=== PATIENT | male | born 1955 | race Caucasian/White ===

== ENCOUNTER 2017-04-20 12:00 | Inpatient (IN) | payer OTHER ==
[~2017-04-20] VITALS: Ht 175.3 cm; Wt 57.6 kg
--- NOTE | ~2017-04-20 | HP ---
Unit #: [id number] #: [id number] Patient: JHOAN BELL [id number] [place] [address] [id number] MR#: [id number] NAME: JHOAN BELL. ROOM: [facility] Age: 61 Sex: M Admission Date: 04/20/2017 : 1955 Attending Physician: Jhoan Fiore M.D. Admitting Physician: Jhoan Fiore M.D. Primary Care Physician: Johanne Hoyos Aprn HISTORY AND PHYSICAL HISTORY OF PRESENT ILLNESS Jhoan is a 61 year old admitted to [facility] because of his abuse of alcohol. PAST MEDICAL HISTORY 1. Long history of alcohol abuse. 2. High blood pressure. 3. Coronary artery disease. a. CABG. 4. COPD. 5. Vitiligo. PAST SURGICAL HISTORY As above. ALLERGIES Penicillin, sulfa. SOCIAL HISTORY He smokes less than 1/2 pack per day. Drinks a case of beer on a daily basis. Denies illicit drug use. FAMILY HISTORY Medically noncontributory. REVIEW OF SYSTEMS CONSTITUTIONAL: No fever or chills. HEENT: He does report that he fell prior to admission sustaining a laceration across the bridge of his nose. The area is sutured. CARDIOVASCULAR: Denies chest pain, irregular heart rhythm or palpitations. CHEST: Denies shortness of breath or cough. No hemoptysis. GASTROINTESTINAL: Denies nausea, vomiting, diarrhea or chronic constipation. ENDOCRINE: Denies history of increased thirst or urination. No recent significant weight loss or gain. GENITOURINARY: Denies dysuria, frequency, or hematuria. SKIN: Denies any rashes. HEMATOLOGIC: Denies history of increased bleeding or bruising. MUSCULOSKELETAL: Denies any hot, swollen joints. No generalized muscle pain. NEUROLOGIC: Denies problems with vision or speech. No frequent, severe headaches. No numbness, tingling or weakness in any extremities. Denies loss of bladder or bowel control. Unit #: [id number] #: [id number] Patient: JHOAN BELL CURRENT MEDICATIONS Detox protocol. PHYSICAL EXAMINATION GENERAL: Alert, thin gentleman appearing much, much older than his stated age of 61 in no apparent distress. VITAL SIGNS: Blood pressure 210/100, heart rate 98, respirations 16, temperature 98.6. WEIGHT: 127. HEIGHT: 5 feet 9 inches. SKIN: Warm and dry without rash or lesion. HEENT: Normocephalic. TMs not viewed. Oral and nasal passages clear. Conjunctivae clear. PERRLA. EOMs intact. Stitches across the bridge of the nose. There is good skin approximation without redness, swelling, heat or pus. NECK: Supple without lymphadenopathy or thyromegaly. HEART: Regular rate and rhythm without murmur. LUNGS: Clear. ABDOMEN: Soft, nontender. : Not done. EXTREMITIES: No evidence of cyanosis, clubbing or edema. Moves all without focal deficit. NEUROLOGICAL: Grossly within normal limits. Cranial Nerves: II: Visual tolentino are intact. III, IV AND : Extraocular movements are intact. Pupils are equal, round and reactive to light. V: Facial sensation is grossly normal. VII: Facial movements and expression are normal. VIII: Auditory acuity grossly intact. IX, X: Uvula is midline. Phonation is normal. XI: Patient shrugs shoulders and turns head normally. XII: Tongue protrudes in the midline. Sensory and Motor Function: Sensory and motor sensation is grossly normal. Motor: moves all extremities well. Coordination: Gait is normal. Deep Tendon Reflexes: Intact. IMPRESSION 1. Psychiatric admission. 2. High blood pressure, not controlled on admission. He is admitted on Zestril 20 mg daily. RECOMMENDATIONS PSYCHIATRIC: Per psychiatrist. MEDICAL: 1. See no contraindication to participate in facility's activities. 2. Detox per protocol. 3. Continue Zestril daily. If pressures remain high will need to address. MEDICAL PROGNOSIS Good. MEDICAL CONDITION Stable. Unit #: [id number] #: [id number] Patient: JHOAN BELL Dictated by... Bushra Lea P.A.-C. for Angela Epps/brennan TD: 04/21/2017 17:33 JOB #: [id number] HISTORY AND PHYSICAL Page 1 of 1 X Bushra Lea HISTORY AND PHYSICAL
--- NOTE | ~2017-04-20 | A ---
[facility] Nutrition Therapy DATE: 04/22/17 Patient: KARINA BELL Physician: GRAZYNA Address: [address] [place] [address] Room/Bed: [address], Zip: [place] [address] Admit Date: 04/20/17 Date of : 53 Height: 5 9 Weight: [phone] NUTRITIONAL ASSESSMENT: REASON: LOW BMI (18.8) PATIENT ADMITTED FOR ETOH DETOX PMH: HTN, CAD, COPD Anthropometrics: HT: 69", WT: 127#, BMI: 18.8, %IBW: 79 Labs: 04/21/17: NA: 146, GLU: 111 Meds: MVI, DETOX PROTOCOL, VIT B COMPLEX Assessment: PATIENT IS A 61 Y/O MALE ADMITTED FOR ETOH DETOX. PATIENT IS CURRENTLY ON DISABILITY, LIVES IN A TRAILER, SMOKES 1 PPD, AND HAS DAILY ETOH USE FOR THE LAST 4 MONTHS. HE DENIES ANY OTHER SUBSTANCE ABUSE. UPON ADMIT PATIENT STATED A POOR APPETITE WHEN DRINKING, HE'S HAD AN UNKNOWN AMOUNT OF WEIGHT LOSS, AND HE SLEEPS AN AVERAGE OF 2HRS/NIGHT. NURSING REPORTS FAIR PO INTAKES AND THE PATIENT DID NOT SCORE ANY NUTRITIONAL RISK POINTS. PATIENT FELL SEVERAL DAYS AGO AND HE SUSTAINED A LACERATION TO HIS NOSE WHICH HAS BEEN SUTURED. HE IS NOTED TO BE CONFUSED/FORGETFUL AND HE HAS BEEN NON-COMPLIANT WITH HIS MEDICATIONS PRIOR TO ADMIT. THIS RD SUSPECTS PATIENT'S WEIGHT AND APPETITE WILL STABILIZE AND POSSIBLY INCREASE FOLLOWING DETOX. Dx: INADEQUATE NUTRIENT INTAKE R/T CURRENT CONDITION, ETOH ABUSE AEB LOW BMI, DECREASED APPETITE Intervention: REGULAR DIET, LARGE PORTION ENTREES, MEDS PER MD, DETOX, PSYCH Monitoring, Evaluation and Goals: 1. ADEQUATE PO INTAKES >50% OF MEALS 2. PREVENT, CORRECT MICRO/MACRO NUTRIENT DEFICIENCIES 3. WEIGHT; PROMOTE A STEADY WEIGHT GAIN TOWARDS A HEALTHY BMI OF 19-25, PREVENT WEIGHT LOSS MONITOR: WEIGHTS, LABS, PO/FLUID INTAKES Recommendations: 1. CONTINUE REGULAR DIET TOLERATED. WILL INCREASE ENTREES TO LARGER PORTIONS D/T NEED FOR INCREASED CALORIC INTAKE 2. ENCOURAGE ADEQUATE PO AND FLUID INTAKES [facility] Nutrition Therapy DATE: 04/22/17 Patient: KARINA BELL Physician: GRAZYNA Address: [address] [place] [address] Room/Bed: [address], Zip: [place] [address] Admit Date: 04/20/17 Date of : [birth year] Height: 5 9 Weight: [phone] 3. OBTAIN WEIGHTS ROUTINELY (EVERY 3-4 DAYS) 4. IF PO INTAKES ARE BELOW 50% OF MEALS PLEASE ORDER ENSURE BID TO PROMOTE ADEQUATE KCAL AND PROTEIN INTAKES RD TO F/U PER PROTOCOL AND PRN R/T PATIENT MILDLY COMPROMISED Respectfully, OBINNA MOHAN RD, LD Food and Nutritional Services [facility] cc: client file
--- NOTE | ~2017-04-20 | PA ---
Unit #: [id number] #: [id number] Patient: KARINA HERNANDEZ [id number] [place] [address] [id number] I MR#: [id number] NAME: KARINA HERNANDEZ. ROOM: [facility] Age: 61 Sex: M Admission Date: 04/20/2017 : 1955 Date of Assessment: Attending Physician: Karina Fiore M.D. Admitting Physician: Karina Fiore M.D. Primary Care Physician: Johanne Hoyos Aprn PSYCHIATRIC ASSESSMENT INFORMANT(S) Patient. RELIABILITY Reliable. CHIEF COMPLAINT Detox. HISTORY OF PRESENT ILLNESS Mr. Hernandez is a 61-year-old man who reports that he has been drinking excessively on a daily basis and causing a lot of problems in his life. He also has a gash on the bridge of his nose from an intoxicated fall. He denied suicidal ideation intent or plan and was admitted due to the need for inpatient detox. PAST PSYCHIATRIC HISTORY The patient has been treated at [facility] in the past and was in a substance abuse program in [facility]. He currently does not take any psychiatric medications. FAMILY HISTORY The patient denied a family history of substance abuse. He did have one sister who attempted suicide over depression. SOCIAL HISTORY The patient denied any history of childhood abuse. The patient's in 2007 while he was incarcerated. He reports he has a "on and off" relationship with a woman right now. He has no pending legal charges or probationary status. He completed school only through the fifth grade and received social security disability due to multiple medical problems. He is currently living on his sister's property in a trailer with no electricity. MEDICAL HISTORY 1. Hypertension. 2. Heart disease. MEDICATION HISTORY Lisinopril. ALLERGIES Penicillin and sulfa drugs. Unit #: [id number] #: [id number] Patient: KARINA HERNANDEZ SUBSTANCE ABUSE HISTORY As noted above. MENTAL STATUS EXAM Mr. Hernandez presented as a disheveled man who appeared older than his stated age. He is cooperative with the examination. His speech was soft, but easily understood. Calm. Mood, mildly depressed with a congruent affect. He was alert and fully oriented. His memory and concentration were intact. His thought process was logical with no antipsychosis. He denied suicidal ideation intent or plan. Insight and judgment were fair. Fund of knowledge and (1) were intact. ASSETS AND LIABILITIES The patient has local resources including voluntary elective treatment. Liabilities include difficulty in maintaining sobriety. ADMITTING DIAGNOSES AXIS I Alcohol dependence, withdrawal and uncomplicated. F10.23 AXIS II No diagnosis. AXIS III Hypertension, coronary artery disease. PSYCHIATRIC PLAN/TREATMENT GOALS The patient was admitted and placed on the alcohol detox protocol. Zestril will be restarted from his home medications. Physical examination will be conducted and reviewed. Treatment goals will be established and sobriety improvement and insight improvement and coping skills. DISCHARGE PLANNING Following up with [facility]. ESTIMATED LENGTH OF STAY Five days. Dictated by... Karina Fiore M.D. H/heaven TD: 04/21/2017 11:53 JOB #: [id number] PSYCHIATRIC ASSESSMENT Page 1 of 1 X Karina Fiore MD X PSYCHIATRIC ASSESSMENT
--- NOTE | ~2017-04-20 | CO ---
Unit #: [id number] #: [id number] Patient: JHOAN BELL [id number] [place] [address] [id number] I MR#: [id number] NAME: JHOAN BELL. ROOM: [facility] Age: 61 Sex: M Admission Date: 04/20/2017 : 1955 Attending Physician: Jhoan Fiore M.D. Primary Care Physician: Johanne Hoyos Aprn Consultation Date: 04/23/2017 CONSULTATION REPORT REASON FOR CONSULTATION Sutures on the bridge of his nose. 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 He lost his balance and fell, and hit his nose. He had sutures placed in an outlying emergency department on 04/20/2017. He denies any nausea, vomiting, fever, chills, chest pain, or shortness of air. OBJECTIVE GENERAL: The patient is a 61-year-old man, who is awake, alert, no acute distress. VITAL SIGNS: Stable. CHEST: Clear. CARDIOVASCULAR: S1, S2. Regular rate and rhythm. HEENT: The patient has a laceration to the bridge of his nose with sutures. NEUROLOGIC: Within normal limits. Cranial nerves 2 through 12 intact. ASSESSMENT Laceration on the bridge of his nose with the sutures. PLAN At this time, the patient did have these sutures placed on 04/20/2017 at an outlying ER. There has been no signs or symptoms of infection. The patient will need to have the sutures removed on 04/27/2017. I have discussed this with the patient. He is agreeable. He wants to follow up with his primary care provider in [place]. Dictated by... Marcia Canada A.P.R.N. for Angela Epps TD: 04/23/2017 19:42 JOB #: [id number] Unit #: [id number] #: [id number] Patient: JHOAN BELL CONSULTATION REPORT Page 1 of 1 X Marcia Canada APRN CONSULTATION REPORT
--- NOTE | ~2017-04-20 | PN ---
Unit #: [id number] #: [id number] Patient: JHOAN BELL [id number] [facility] [address] [place] [address] [id number] I MR#: [id number] NAME: JHOAN BELL. ROOM: P171 Age: 61 Sex: M Admission Date: 04/20/2017 : 1955 Attending Physician: Jhoan Fiore M.D. Admitting Physician: Jhoan Fiore M.D. Primary Care Physician: Víctor Reyez PROGRESS NOTES DATE 04/22/2017 DISCUSSION Jhoan continues to have active detox symptoms today. He is disheveled in appearance and mildly tremulous. He is alert and fully oriented. His memory and concentration are fair. His thought processes are logical with no active psychosis. He denies suicidal ideation, intent or plan. ASSESSMENT Alcohol dependence. PLAN Continue detox protocol. Dictated by... Angela Eduardo/leana TD: 04/22/2017 22:59 JOB #: [id number] [facility] PROGR[facility] NOTES Page 1 of 1 X Jhoan Fiore MD X PROGRESS NOTE
--- NOTE | ~2017-04-20 | DS ---
Unit #: [id number] #: [id number] Patient: JHOAN BELL [id number] [facility] [address] [place] [address] [id number] I MR#: [id number] NAME: JHOAN BELL. ROOM: [facility] Age: 61 Sex: M Admission Date: 04/20/2017 : 1955 Discharge Date: 04/23/2017 Attending Physician: Jhoan Fiore M.D. Primary Care Physician: Johanne Hoyos Aprn DISCHARGE SUMMARY REASON FOR ADMISSION The patient is a 61-year-old man, who had been admitted due to drinking excessively on a daily basis with this causing a lot of problems in his life. He also had a gash on his nose from an intoxicated fall on a bridge. Upon admission, he had denied suicidal ideation, intent, or plan. He was admitted due to the need for inpatient detox. DIAGNOSTIC STUDIES AND LABORATORY DATA Please see hospital chart. HOSPITAL COURSE The patient was admitted and placed on alcohol detox protocol. He was enrolled in groups and programming and safely completed the detox program with no issues. DISCHARGE DIAGNOSES AXIS I: Alcohol dependence withdrawal, uncomplicated at F10.23. AXIS II: No diagnosis. AXIS III: 1. Hypertension. 2. Coronary artery disease. AXIS IV: AXIS V: DISCHARGE INSTRUCTIONS Follow [facility] with [facility] and PCP regarding removal of stitches to the nose. DISCHARGE MEDICATIONS See medical record. CONDITION ON DISCHARGE Fair. PROGNOSIS Fair. DIET AND ACTIVITY Ad ryan. Dictated by... Siomara Bray APRN for Jhoan Fiore M.D. Unit #: [id number] #: [id number] Patient: JHOAN BELL TW/modl TD: 04/26/2017 05:15 JOB #: [id number] DISCHARGE SUMMARY Page 1 of 1 X SIOMARA BRAY DISCHARGE SUMMARY
[2017-04-21 09:46] LABS: BASOPHIL% 0.5 % (0-2.5); EOSINOPHIL# 0.1 X10e3 (0-0.7); EOSINOPHIL% 1.9 % (0.0-7.0); HEMATOCRIT 42.2 % (38.0-50.0); LYMPHOCYTE# 0.8 X10e3 (1.0-3.5); LYMPHOCYTE% 10.5 % (17.0-45.0); MEAN CELL VOLUME 94.7 FL (83-96); MEAN CORPUSCULAR HEMOGLOBIN 31.3 PG (28-34); MEAN PLATELET VOLUME 9.9 FL (6.5-11.5); MONOCYTE# 0.9 X10e3 (0-1.0); MONOCYTE% 12.1 % (3.0-12.0); NEUTROPHIL# 5.6 X10e3 (1.5-7.1); PLATELET COUNT 142 X10e3 (140-420); RED BLOOD COUNT 4.46 X10e (3.90-5.60); RED CELL DISTRIBUTION WIDTH 14.3 % (11.0-15.5); WHITE BLOOD COUNT 7.4 X10e3 (4.0-10.5)
[2017-04-21 09:48] LABS: DIFF IND NO
[2017-04-21 10:05] LABS: ALBUMIN SERUM 3.8 g/dL (3.5-5.0); BILIRUBIN,TOTAL 0.8 mg/dL (0.2-2.0); BUN/CREATININE RATIO 17.77; CALCIUM SERUM 9.4 mg/dL (8.4-10.2); CREATININE SERUM 0.9 mg/dL (0.6-1.4); GLOM FILT RATE Estimated 91.2 mL/min (>60); POTASSIUM 4.3 mmol/L (3.5-5.1)
[2017-04-22 09:45] LABS: URINE APPEARANCE CLEAR; URINE BILIRUBIN NEG (NEG); URINE BLOOD NEG (NEG); URINE COLOR DK YELLOW; URINE GLUCOSE NEG (NEG); URINE KETONE NEG (NEG); URINE LEUKOCYTE ESTERASE NEG (NEG); URINE NITRATE NEG (NEG); URINE PROTEIN TRACE (NEG); URINE SPECIFIC GRAVITY 1.019 (1.003-1.035); URINE UROBILINOGEN 0.2 MG/DL (NEG)
[2017-04-22 10:56] LABS: AMPHETAMINE NEG (NEG); BARBITURATES NEG (NEG); BENZODIAZEPINES NEG (NEG); COCAINE NEG (NEG); MARIJUANA NEG (NEG); OPIATES NEG (NEG); TRICYCLIC ANTIDEPRESSANTS NEG (NEG); U METHADONE NEG (NEG)
== END 2017-04-23 13:50 | DRG 897 ==
LOC: P1E 23:03
PROVIDERS: Psychiatry & Neurology Psychiatry
PROC: HZ2ZZZZ Detoxification Services for Substance Abuse Treatment (ICD-10-PCS; principal; 2017-04-20)
DX: F10.230 Alcohol dependence with withdrawal, uncomplicated (principal); I10 Essential (primary) hypertension; I25.10 Atherosclerotic heart disease of native coronary artery without angina pectoris; J44.9 Chronic obstructive pulmonary disease, unspecified; Z95.1 Presence of aortocoronary bypass graft; Z88.0 Allergy status to penicillin; Z88.2 Allergy status to sulfonamides
CPT/HCPCS: 80053; 80307; 81003; 85025; 86592

== ENCOUNTER 2017-04-20 13:53 | Emergency (ER) | payer OTHER ==
[~2017-04-20] VITALS: Ht 175.3 cm; Wt 57.6 kg
--- NOTE | ~2017-04-20 | CT52 ---
[facility] A Service of [facility] RADIOLOGY TEXT RESULTS PATIENT: KARINA BELL LOCATION: [facility] : 53 UNIT #: [id number] AGE: [address]: Vignesh Fischer MD SEX: M ORDER DR: [id number] [facility] [address] [place], [place] [address] [id number] E MR#: [id number] Acc #: [id number] NAME: KARINA BELL. : 1955 SEX: M STUDY DATE/TIME: 04/20/2017 14:39 UNIT: GINGER ROOM: STUDY DESCRIPTION: CT Cervical Spine Wo Cont Attending Physician: Vignesh Fischer M.D. Ordering Physician: Buzz Amador M.D. Primary Care Physician: Primary Care Physician No MEDICAL IMAGING REPORT This report is preliminary unless electronic signature is present EXAM CT cervical spine without contrast DATE: 04/20/2017 HISTORY 61-year-old male fell today, now complains of posterior neck pain. COMPARISON None. PROCEDURE 2 mm noncontrast axial images through the cervical spine. Sagittal and coronal reformatted images were obtained. FINDINGS Anterior disc-based calcifications are present at C4-5, C5-6 and C6-7. Disc height appears fairly well preserved at each cervical level. The craniocervical junction is intact. No acute cervical spine fracture or subluxation is seen. Multilevel degenerative changes are present. At C2-3, there is moderate left facet arthropathy, mild right facet arthropathy but no significant canal or foraminal stenosis is seen. At C3-4, there is mild bilateral uncovertebral spurring, severe right, mild left facet arthropathy. No significant canal stenosis, but there is mild to moderate right neural foraminal narrowing. At C4-5, there is severe right side facet arthropathy, mild to moderate left facet arthropathy. Severe right neural foraminal narrowing. No significant canal stenosis. No significant left neural foraminal narrowing. [facility] A Service of [facility] RADIOLOGY TEXT RESULTS PATIENT: KARINA BELL LOCATION: [facility] #: [id number] : 53 UNIT #: [id number] AGE: [address]: Vignesh Fischer MD SEX: M ORDER DR: At C5-6, there is moderately advanced bilateral facet arthropathy, right greater than left, with mild posterior disc osteophyte formation. There is only borderline canal stenosis. There is mild to moderate right neural foraminal narrowing. At C6-7, there is very mild left, moderate right facet arthropathy No significant canal stenosis. Probable mild right neural foraminal narrowing. At C7-T1, there is severe left side facet arthropathy, severe right neural foraminal narrowing. Left neural foramen is patent. No significant canal stenosis is seen. Emphysematous changes and scarring is seen within the lung apices. Carotid bulb calcifications are noted. IMPRESSION 1. No acute cervical spine findings. 2. Multilevel degenerative changes in the cervical spine as described above, predominately manifest as advanced facet arthropathy. Suspected severe right C3-4, right C4-5 and right C7-T1 foraminal stenosis. Dictated by... Rosangela Zuleta M.D. THIS IS AN ELECTRONICALLY VERIFIED REPORT Rosangela Zuleta M.D. at 04/21/2017 8:56 AM MANJULA/emmanuel TD: 04/20/2017 21:16 JOB #: [id number] MEDICAL IMAGING REPORT Page 1 of 1 COPY
--- NOTE | ~2017-04-20 | CT71 ---
[facility] A Service [facility] RADIOLOGY TEXT RESULTS PATIENT: KARINA BELL LOCATION: [facility] : 53 UNIT #: [id number] AGE: [address]: Vignesh Fischer MD SEX: M ORDER DR: [id number] [address] [place], [place] [address] [id number] E MR#: [id number] Acc #: [id number] NAME: KARINA BELL. : 1955 SEX: M STUDY DATE/TIME: 04/20/2017 14:36 UNIT: GINGER ROOM: STUDY DESCRIPTION: CT Head Wo Contrast Attending Physician: Vignesh Fischer M.D. Ordering Physician: Buzz Amador M.D. Primary Care Physician: No Primary Care Physician MEDICAL IMAGING REPORT This report is preliminary unless electronic signature is present EXAM CT head without contrast Date: 04/20/2017 HISTORY A 61-year-old male who fell today, intoxicated. Now with headache, nasal abrasion, pain behind the forehead and posterior neck pain. COMPARISON CT head without contrast 10/27/2010. TECHNIQUE This CT exam was performed with one or more of the following radiation dose reduction techniques: automatic exposure control, adjustment of mA and/or kV according to patient size, and iterative reconstruction. FINDINGS There is mild left frontal scalp soft tissue swelling. No acute displaced calvarial fracture is identified. Major paranasal sinuses and mastoid air cells are clear. No intracranial hemorrhage, mass lesion, mass effect or midline shift or evidence of acute or evolving infarct. Ventricular configuration is normal. IMPRESSION 1. Mild left frontal scalp soft tissue swelling. 2. No acute intracranial findings. Dictated by... Rosangela Zuleta M.D. [facility] A Service of [facility] RADIOLOGY TEXT RESULTS PATIENT: KARINA BELL LOCATION: [facility] : 53 UNIT #: [id number] AGE: [address]: Vignesh Fischer MD SEX: M ORDER DR: THIS IS AN ELECTRONICALLY VERIFIED REPORT Rosangela Zuleta M.D. at 04/21/2017 8:56 AM Jakob TD: 04/20/2017 20:59 JOB #: [id number] MEDICAL IMAGING REPORT Page 1 of 1 COPY
== END 2017-04-20 22:15 ==
LOC: CED 13:53
DX: S06.0X9A Concussion with loss of consciousness of unspecified duration, initial encounter (principal); S01.21XA Laceration without foreign body of nose, initial encounter; I10 Essential (primary) hypertension; F10.10 Alcohol abuse, uncomplicated; Z88.0 Allergy status to penicillin; Z88.2 Allergy status to sulfonamides; W18.30XA Fall on same level, unspecified, initial encounter; Y92.89 Other specified places as the place of occurrence of the external cause
CPT/HCPCS: 12011; 70450; 72125; 99284